=== PATIENT | female | born 1945 | race Caucasian/White ===

== ENCOUNTER 2017-01-30 05:31 | Emergency (ER) | payer OTHER ==
[~2017-01-30] VITALS: Ht 165.1 cm; Wt 80.1 kg
[2017-01-30] MEDS ORDERED: SODIUM CHLORIDE 0.9% 1000ML 1,000 ML IV STA (05:33)
--- NOTE | 2017-01-30 05:38 | EMERGENCY ROOM VISIT NOTE ---
History Report prepared by Rg: Rah Esquivel Under the Supervision of: Dr. Mo Alejandro D.O. First contact with patient: 05:33 Chief Complaint: KIDNEY STONE Stated Complaint: KIDNEY PAIN IN LOWER BACK History of Present Illness The patient is a 71 year old female who presents to the Emergency Room with complaints of constant right-sided flank pain beginning yesterday. She currently rates her discomfort a 2/10 in severity. The patient states that her pain does not radiate to other parts of her body. She states that she has nausea and a decreased appetite. The patient denies fevers and dysuria. She reports that she thinks she has a kidney infection. The patient states that she typically does not drink many fluid. She notes that yesterday she drank a gross amount of water mixed with powdered propel. The patient states that she has a history of hyperkalemia, gastritis, stomach ulcers, and kidney stones. She reports that her PCP referred her to a merchandise displayer. Source of History: patient Onset: yesterday Position: other (right flank) Symptom Intensity: 2/10 Timing: constant Associated Symptoms: + nausea, No fevers, No urinary symptoms Note: Associated symptoms: decreased appetite. Review of Systems See HPI for pertinent positives and negatives. A total of ten systems were reviewed and were otherwise negative. Past Medical & Surgical Medical Problems: (1) Gastritis (2) Hyperkalemia (3) Kidney stones (4) Stomach ulcer Family History Patient reports no known family medical history. Social History Smoking Status: Never Smoker Current/Historical Medications Scheduled Acetaminophen (Tylenol Arthritis Ext Rel), 2 CAP PO QAM Acetaminophen (Tylenol), 1,000 MG PO HS Amlodipine (Norvasc), 10 MG PO DAILY Atorvastatin (Lipitor), 10 MG PO DAILY B-Complex Vitamins (Vitamin B Complex), 1 TAB PO DAILY Cholecalciferol (Vitamin D3), 1 CAP PO DAILY Fluticasone Propionate (Nasal) (Flonase Allergy Relief), 2 SPRAYS SCOTT DAILY Meclizine Hcl (Meclizine Hcl), 25 MG PO QAM Melatonin (Melatonin Maximum Strengt), 1 TAB PO HS Omeprazole (Prilosec), 20 MG PO DAILY Allergies Coded Allergies: Lisinopril (Verified Allergy, Severe, limited potassium absorbtion, 01/30/17 ) NSAIDs (Verified Allergy, Unknown, Unsure, 01/30/17) Sulfa Antibiotics (Verified Allergy, Unknown, ANAPHYLAXIS, 01/30/17) Uncoded Allergies: SULFA (Allergy, Severe, ANAPHYLAXIS, 01/30/17) MUSCLE RELAXERS (Allergy, Unknown, RASH, 01/30/17) Physical Exam Vital Signs Date Time Temp Pulse Resp B/P (MAP) Pulse Ox O2 Delivery O2 Flow Rate FiO2 01/30/17 06:22 81 16 166/65 98 Room Air 01/30/17 05:39 36.6 73 16 153/72 100 Room Air Physical Exam GENERAL: Awake, alert, well-appearing, in no distress HENT: Normocephalic, atraumatic. Oropharynx unremarkable. EYES: Normal conjunctiva. Sclera non-icteric. NECK: Supple. No nuchal rigidity. FROM. No JVD. RESPIRATORY: Clear to auscultation. CARDIAC: Regular rate, normal rhythm. Extremities warm and well perfused. Pulses equal. ABDOMEN: Soft, non-distended. No tenderness to palpation. No rebound or guarding. No masses. RECTAL: Deferred. MUSCULOSKELETAL: Chest examination reveals no tenderness. The back is symmetrical on inspection without obvious abnormality. There is right CVA tenderness to palpation. No joint edema. LOWER EXTREMITIES: Calves are equal size bilaterally and non-tender. No edema. No discoloration. NEURO: Normal sensorium. No sensory or motor deficits noted. SKIN: No rash or jaundice noted. Medical Decision & Procedures ER Provider Diagnostic Interpretation: Radiology results as stated below per my review and radiologist interpretation CT ABDOMEN & PELVIS: No urinary obstruction or radiopaque urinary stone. Cholelithiasis without CT evidence of acute cholecystitis or acute pancreatitis. Small hiatal hernia. No bowel obstruction. Unremarkable appendix. Colonic diverticulosis without CT evidence of acute diverticulitis. 1.8 centimeter right ovarian low-density lesion, possibly a cyst. No free fluid. No free air. Right anterior abdominal wall 1.8 centimeter cutaneous lesion, just under the right breast. Correlate with physical examination. Radiologist: Dleaney Hall M.D. Study ready at 0602 and initial results transmitted at 0629. Laboratory Results 01/30/17 05:45 Red Blood Count 4.61, Mean Corpuscular Volume 86.8, Mean Corpuscular Hemoglobin 29.5, Mean Corpuscular Hemoglobin Concent 34.0, Mean Platelet Volume 10.4, Neutrophils (%) (Auto) 50.3, Lymphocytes (%) (Auto) 34.3, Monocytes (%) (Auto) 12.4, Eosinophils (%) (Auto) 2.2, Basophils (%) (Auto) 0.7, Neutrophils # (Auto ) 5.06, Lymphocytes # (Auto) 3.45, Monocytes # (Auto) 1.25, Eosinophils # (Auto ) 0.22, Basophils # (Auto) 0.07 01/30/17 05:45 Test 01/30/17 05:45 White Blood Count 10.06 K/uL (4.8-10.8) Red Blood Count 4.61 M/uL (4.2-5.4) Hemoglobin 13.6 g/dL (12.0-16.0) Hematocrit 40.0 % (37-47) Mean Corpuscular Volume 86.8 fL (80-100) Mean Corpuscular Hemoglobin 29.5 pg (25-34) Mean Corpuscular Hemoglobin Concent 34.0 g/dl (32-36) Platelet Count 315 K/uL (130-400) Mean Platelet Volume 10.4 fL (7.4-10.4) Neutrophils (%) (Auto) 50.3 % Lymphocytes (%) (Auto) 34.3 % Monocytes (%) (Auto) 12.4 % Eosinophils (%) (Auto) 2.2 % Basophils (%) (Auto) 0.7 % Neutrophils # (Auto) 5.06 K/uL (1.4-6.5) Lymphocytes # (Auto) 3.45 K/uL (1.2-3.4) Monocytes # (Auto) 1.25 K/uL (0.11-0.59) Eosinophils # (Auto) 0.22 K/uL (0-0.5) Basophils # (Auto) 0.07 K/uL (0-0.2) RDW Standard Deviation 45.1 fL (36.4-46.3) RDW Coefficient of Variation 14.1 % (11.5-14.5) Immature Granulocyte % (Auto) 0.1 % Immature Granulocyte # (Auto) 0.01 K/uL (0.00-0.02) Urine Color YELLOW Urine Appearance CLEAR (CLEAR) Urine pH 6.0 (4.5-7.5) Urine Specific [place] 1.020 (1.000-1.030) Urine Protein NEG (NEG) Urine Glucose (UA) NEG (NEG) Urine Ketones NEG (NEG) Urine Occult Blood NEG (NEG) Urine Nitrite NEG (NEG) Urine Bilirubin NEG (NEG) Urine Urobilinogen NEG (NEG) Urine Leukocyte Esterase TRACE (NEG) Urine WBC (Auto) 1-5 /hpf (0-5) Urine RBC (Auto) 0-4 /hpf (0-4) Urine Hyaline Casts (Auto) 1-5 /lpf (0-5) Urine Epithelial Cells (Auto) >30 /lpf (0-5) Urine Bacteria (Auto) NEG (NEG) Anion Gap 7.0 mmol/L (3-11) Est Creatinine Clear Calc Drug Dose 65.6 ml/min Estimated GFR () 84.1 Estimated GFR (Non- 72.6 BUN/Creatinine Ratio 30.6 (10-20) Calcium Level 9.0 mg/dl (8.5-10.1) Laboratory results reviewed by me Medications Administered Medications (Trade) Dose Ordered Sig/Shannen Route Start Time Stop Time Status Last Admin Dose Admin Sodium Chloride 1,000 ml @ 999 mls/hr Q1H1M STAT IV 01/30/17 05:33 01/30/17 06:33 DC 01/30/17 05:56 999 MLS/HR ED Course 0533: Ordered Sodium Chloride 1000 ml @ 999 mls/hr IV 0544: The patient was evaluated in room A09B. A complete history and physical exam was performed. 0633: I reevaluated the patient. She is resting and is in no distress. The patient has minor right paraspinal tenderness. She states she does not want pain medication. Discussed results and discharge instructions: she verbalized understanding and agreement. The patient is ready for discharge. Medical Decision Renal colic, kidney stone, pyelonephritis, rule out AAA. Medication Reconciliation: I attest that I have personally reviewed the patient' s current medication list. Blood pressure screening: Patient was found to have an elevated blood pressure and was referred to their primary doctor for recheck and further treatment. Repeat examination patient's resting in no distress at 6:42 AM. Patient has paraspinal lumbar tenderness. There is no obvious rash on her back. I reviewed the CAT scan results blood work as well as urinalysis with the patient patient's daughter at bedside. I've offered pain medicine she does not want pain medicine at this time. She will return to [place] and get follow up when she returns. Impression Primary Impression: Right flank pain Additional Impression: Lumbar back pain Scribe Attestation The scribe's documentation has been prepared under my direction and personally reviewed by me in its entirety. I confirm that the note above accurately reflects all work, treatment, procedures, and medical decision making performed by me. Departure Information Dispostion Home / Self-Care Referrals No Doctor, Assigned (PCP) Patient Instructions Back Pain - [facility], ED Flank Pain Uncertain Cause, [facility] Problem Qualifiers
[2017-01-30 05:39] VITALS: TEMP 36.6; Ht 165.1 cm; Wt 80.1 kg
[2017-01-30 06:04] LABS: BASO % 0.7 %; BASO ABS # 0.07 K/uL (0-0.2); COMPLETE YES; EOS % 2.2 %; IG% 0.1 %; LYMPH % 34.3 %; LYMPH ABS # 3.45 K/uL (1.2-3.4); MEAN CELL VOLUME 86.8 fL (80-100); MEAN CORPUSCULAR HEMOGLOBIN 29.5 pg (25-34); MEAN PLATELET VOLUME 10.4 fL (7.4-10.4); MONO % 12.4 %; NEUT % 50.3 %; PLATELET COUNT 315 K/uL (130-400); RED BLOOD COUNT 4.61 M/uL (4.2-5.4); WHITE BLOOD COUNT 10.06 K/uL (4.8-10.8)
[2017-01-30] MEDS ORDERED: MECL1TAB42 PO (06:20)
[2017-01-30] MEDS ORDERED: CHOL2000 PO (06:21)
[2017-01-30] MEDS ORDERED: ATOR10TA82 PO (06:21)
[2017-01-30] MEDS ORDERED: AMLO-114 PO (06:21)
[2017-01-30] MEDS ORDERED: PRLSR20 PO (06:21)
[2017-01-30] MEDS ORDERED: FLUT0.15 NAE (06:21)
[2017-01-30] MEDS ORDERED: B-COTAB18 PO (06:21)
[2017-01-30 06:22] VITALS: BP 166/65; PULSE 81; O2SAT 98
[2017-01-30 06:22] LABS: BUN/CREATININE RATIO 30.6 (10-20); CREATININE 0.81 mg/dl (0.60-1.20); POTASSIUM 3.6 mmol/L (3.5-5.1)
[2017-01-30] MEDS ORDERED: MELATAB2 PO (06:22)
[2017-01-30] MEDS ORDERED: TYLOTC500 PO (06:22)
[2017-01-30] MEDS ORDERED: ACET1TAB84 PO (06:22)
[2017-01-30 06:33] LABS: URINE APPEARANCE CLEAR (CLEAR); URINE BILIRUBIN NEG (NEG); URINE COLOR YELLOW; URINE EPITHELIAL CELL AUTO >30 /lpf (0-5); URINE NITRITE NEG (NEG); UROBILINOGEN NEG (NEG)
[2017-01-30 06:43] LABS: MANUAL MICROSCOPIC REQUIRED? NO; REVIEW REQ? NO
--- NOTE | 2017-01-30 06:59 | DIAGNOSTIC IMAGING REPORT ---
CT SCAN OF THE ABDOMEN AND PELVIS WITHOUT CONTRAST CLINICAL HISTORY: Right flank pain COMPARISON STUDY: No previous studies for comparison. TECHNIQUE: CT scan of the abdomen and pelvis was performed from the lung bases to the proximal femurs. Images are reviewed in the axial, sagittal, and coronal planes. IV contrast was not administered for this examination. CT DOSE: 1041.13 mGy.cm FINDINGS: Lower chest: There is a small sliding hiatal hernia. The heart is mildly enlarged. There is a 16 mm cutaneous lower right anterior chest wall mass likely representing a sebaceous cyst. Liver: There is a 1 cm hypodensity within the right lobe of the liver centrally. This is of relatively low attenuation and may represent a cyst. Gallbladder: Cholelithiasis Spleen: Normal in size and attenuation. Pancreas: Unremarkable. Adrenal glands: Unremarkable. Kidneys: There is small hepatic hypodensities, the largest of which measures 12 mm. These statistically represent cysts. There is a punctate nonobstructing left renal calculus. No right renal calculi are visualized. There is mild bilateral perinephric stranding. No ureteral or bladder calculi are visualized. There is minimal prominence of each renal collecting system. Bowel: There are no transition zones to indicate bowel obstruction. There is extensive colonic diverticulosis. There are no acute peridiverticular inflammatory changes. The appendix appears normal. Peritoneum: There is no intraperitoneal free air or abdominal ascites. Vasculature: The abdominal aorta is normal in course and caliber. Adenopathy: None. Pelvic viscera: The uterus appears surgically absent. There is an 18 mm right upper pelvic cystic lesion, likely representing an ovarian cyst. Skeletal structures: Degenerative changes are present within the hips. No destructive lesions are visualized. IMPRESSION: 1. No evidence of bowel obstruction. No evidence of free air 2. Punctate nonobstructing left renal calculus 3. Cholelithiasis 4. Colonic diverticulosis. No evidence of acute diverticulitis 5. Probable right lower chest wall sebaceous cyst 6. 18 mm right upper pelvic cystic lesion, likely representing ovarian cyst. Electronically signed by: Naren Mejia M.D. 01/30/2017 6:57 AM Dictated Date/Time: 01/30/2017 6:49 AM
== END 2017-01-30 06:49 | disposition home or self-care (01) ==
LOC: C.EDB 05:32 → C.EDA 06:49
DX: R10.9 Unspecified abdominal pain (principal); M54.5 Low back pain; K29.70 Gastritis, unspecified, without bleeding; E87.5 Hyperkalemia; Z87.442 Personal history of urinary calculi; K25.9 Gastric ulcer, unspecified as acute or chronic, without hemorrhage or perforation; Z79.899 Other long term (current) drug therapy